=== PATIENT | male | born 1990 | race Caucasian/White ===

== ENCOUNTER 2021-01-18 15:31 | Emergency (ER) | payer OTHER ==
[~2021-01-18] VITALS: Ht 170.1 cm; Wt 68.0 kg
[~2021-01-18 15:31] MED LIST: ATIVAN0.5 MG PO; BACTRIM DS 8001 TA1 PO; CIPRODEX 0.3%-7.5 ML OT; CIPROFLOXACIN500 MG PO; KEFLEX500 MG PO; KENALOG0.1% TP; MEDROL DOSEPAK4 MG PO; MOTRIN800 MG PO; PENICILLIN VK500 MG PO; PROVENTIL0.09 MG/AC IH; SEROQUEL XR150 MG PO; TRAMADOL HCL50 MG PO; VALIUM5 MG PO; ZANTAC150 MG PO; ZITHROMAX Z PA250 MG PO
== END 2021-01-18 18:35 | disposition home or self-care (01) ==
LOC: ED 15:31
DX: S20.212A Contusion of left front wall of thorax, initial encounter (principal); Y08.89XA Assault by other specified means, initial encounter; Y93.89 Activity, other specified; Y92.89 Other specified places as the place of occurrence of the external cause; Y99.8 Other external cause status

== ENCOUNTER 2021-12-06 17:55 | Emergency (ER) | payer OTHER | END 2021-12-06 19:01 | disposition left against medical advice (07) | LOC: ED 17:55 | DX: K08.89 Other specified disorders of teeth and supporting structures (principal); Z53.21 Procedure and treatment not carried out due to patient leaving prior to being seen by health care provider ==